=== PATIENT | female | born 2000 | race Native Hawaiian/Other Pacific Islander ===

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

== ENCOUNTER 2022-05-29 12:25 | Emergency (ER) | payer OTHER ==
[~2022-05-29] VITALS: Ht 157.5 cm; Wt 172.4 kg
[2022-05-29 12:26] VITALS: BP 133/71; TEMP 98.1
== END 2022-05-29 14:06 | disposition home or self-care (01) ==
LOC: ED 12:25
DX: S91.331A Puncture wound without foreign body, right foot, initial encounter (principal); W45.0XXA Nail entering through skin, initial encounter; Y92.89 Other specified places as the place of occurrence of the external cause
CPT/HCPCS: 99282